=== PATIENT | male | born 1965 | race Caucasian/White ===

== ENCOUNTER → 2016-05-09 | Outpatient (CLI) | payer OTHER ==
[~2016-05-09] MED LIST: APIX5TAB PO; HYDR-3240 PO; HYDR12.58 PO; OMNIPAQUE 350 MG/ML, 150 ML BOTTLE ONE; SIMV40TA3 PO; SOTA120T26 PO; VALS320T2 PO; VERA240C2 PO
== END | disposition home or self-care (01) ==
LOC: CFH 10:31
PROVIDERS: ATTEND Internal Medicine Cardiovascular Disease
DX: Z01.810 Encounter for preprocedural cardiovascular examination (principal); I48.0 Paroxysmal atrial fibrillation
CPT/HCPCS: 71020; 75572; 82565; Q9967